=== PATIENT | female | born 1950 | race Caucasian/White ===

== ENCOUNTER → 2016-08-29 | Outpatient (CLI) | payer BC ==
[~2016-08-29] MED LIST: ANASTROZOLE1 MG PO; ATIVAN1 MG PO; CEFUROXIME250 MG PO; COMPAZINE10 MG PO; COZAAR 50 MG TA50 M2 PO; DEXAMETHAS0.5 MG/51 PO; DEXAMETHASONE6 MG PO; HYDROCODONE-CH473 M1 PO; ONDANSETRON HCL8 MG PO; RESTORIL15 MG PO
== END ==
LOC: RAD 11:27
DX: R06.02 Shortness of breath (principal); J90 Pleural effusion, not elsewhere classified; J98.11 Atelectasis; J18.9 Pneumonia, unspecified organism; R91.8 Other nonspecific abnormal finding of lung field

== ENCOUNTER → 2016-12-21 | Outpatient (CLI) | payer BC | LOC: RAD 13:16 | DX: J18.9 Pneumonia, unspecified organism (principal); R06.00 Dyspnea, unspecified ==

== ENCOUNTER → 2017-01-10 | Outpatient (CLI) | payer BC | LOC: CAT 08:49 | DX: C79.81 Secondary malignant neoplasm of breast (principal); G93.0 Cerebral cysts; J90 Pleural effusion, not elsewhere classified ==

== ENCOUNTER 2017-02-28 13:21 | Inpatient (IN) | payer BC ==
[~2017-02-28] VITALS: Ht 157.5 cm; Wt 73.0 kg
--- NOTE | ~2017-02-28 | 2DMMODE ---
[facility] [address] [facility] [place] [employer] [address] 2 D/M-MODE ECHOCARDIOGRAM Name: SHAVONNE SHI Room #: 459-P ADM IN M.R.#: [id number] Admission: 02/28/17 Attend Phys: William Trujillo Discharge: Date of : 54 Date of Service: 03/01/17 1032 Report #: [id number] THIS REPORT FOR: //name// APPROVED REPORT Study performed: 03/01/2017 07:30:44 EXAM: Comprehensive 2D, Doppler, and color-flow Echocardiogram Patient Location: In-Patient Room #: 45 Status: routine Other Information Study Quality: Technically LimitedTechnically Difficult Indications Pleural Effusion 2D Dimensions RVDd: 36.06 mm LVEF(%): 58.79 (>50%) IVSd: 12.12 (7-11mm) LVOT Diam: 18.34 (18-24mm) LVDd: 35.31 mm PWd: 9.45 (7-11mm) Ascending Ao: 34.79 (22-36mm) LVDs: 24.59 (25-40mm) Aortic Root: 28.97 mm IVC: 1.10 mm Badillo's LVEF: 58.79 % Volumes Left Atrial Volume (Systole) Single Plane 4CH: 43.63 mL Aortic Valve AoV Peak Maulik.: 1.61 m/s AO Peak Gr.: 10.34 mmHg LVOT Max P.51 mmHg LVOT Max V: 1.37 m/s ABRAM Vmax: 2.25 cm2 Mitral Valve IVRT: 115.34 ms Pulmonary Valve PV Peak Maulik.: 0.98 m/s PV Peak Gr.: 3.86 mmHg Tricuspid Valve [facility] [address] [place] [address] 2 D/M-MODE ECHOCARDIOGRAM Name: RY SHINDA Room #: 459 ADM IN M.R.#: [id number] Admission: 02/28/17 Attend Phys: William Trujillo Discharge: Date of : 54 Date of Service: 03/01/17 1032 Report #: [id number] RAP Estimate: 10.00 mmHg Left Ventricle The left ventricle is normal size. Regional wall motion is not well visualized but grossly normal. There is normal LV segmental wall motion. There is normal left ventricular wall thickness. Left ventricular systolic function is hyperdynamic. LVEF is 65-70%. This study is not technically sufficient to allow evaluation of the LV diastolic function. Right Ventricle The right ventricle is normal size. The right ventricular systolic function is normal. Atria The left atrium size is normal. The right atrium size is normal. Aortic Valve The aortic valve is grossly normal in structure. No aortic regurgitation. There is no aortic valvular stenosis. Mitral Valve The mitral valve is grossly normal in structure. No mitral regurgitation. No evidence of mitral valve stenosis. Tricuspid Valve The tricuspid valve is normal in structure. There is no tricuspid valve regurgitation noted. Pulmonic Valve The pulmonary valve is normal in structure. There is no pulmonic valvular regurgitation. Great Vessels The aortic root is normal in size. The ascending aorta is normal in size. IVC is normal in size and collapses <50% with inspiration. Pericardium There is no pericardial effusion. <Conclusion> Limited study Left ventricular systolic function is hyperdynamic. LVEF is 65-70%. [facility] [address] [place] [address] 2 D/M-MODE ECHOCARDIOGRAM Name: SHAVONNE SHI Room #: 459-P ADM IN M.R.#: [id number] Admission: 02/28/17 Attend Phys: William Trujillo Discharge: Date of : 54 Date of Service: 03/01/17 1032 Report #: [id number] The aortic valve is grossly normal in structure. No aortic valvular stenosis or insufficiency. The mitral valve is grossly normal in structure. No mitral regurgitation. Pulmonary artery pressure could not be reliably ascertained There is no pericardial effusion. <ELECTRONICALLY SIGNED> By: Joselito Cedillo MD, FACC 03/01/17 1032 31 1032 Joselito Cedillo MD, FACC /INF
[2017-02-28 14:54] VITALS: BP 138/91
[2017-02-28 16:27] LABS: URINE BILIRUBIN NEGATIVE (Negative); URINE BLOOD TRACE (Negative); URINE COLOR YELLOW; URINE GLUCOSE-RANDOM* NEGATIVE (Negative); URINE KETONES NEGATIVE (Negative); URINE LEUKOCYTES-REFLEX NEGATIVE (Negative); URINE PROTEIN (DIPSTICK) NEGATIVE (Negative); URINE SPECIFIC GRAVITY 1.015 (1.003-1.035); URINE UROBILINOGEN 0.2 E.U./dl (0.2-1.0)
[2017-02-28 19:54] LABS: HEMATOCRIT 37.7 % (37.0-47.0); HEMOGLOBIN 12.8 gm/dL (12.0-15.0); MCH 28.2 pg (26.0-34.0); MCV 82.8 fL (80.0-100.0); PLATELET COUNT 388 thou/uL (150-400); RBC 4.55 mil/uL (4.20-5.00); RDW 15.8 % (10.5-14.5); WBC 13.3 thou/uL (4.0-11.0)
[2017-02-28 19:58] LABS: MANUAL DIFF YES
[2017-02-28 20:14] LABS: APTT 29.2 Seconds (24.5-32.8); PROTIME 10.7 Seconds (9.3-11.4)
[2017-02-28 20:15] LABS: ALBUMIN 3.3 g/dL (3.4-5.0); CALCIUM 10.2 mg/dL (8.5-10.1); CREATININE 0.7 mg/dL (0.6-1.0); POTASSIUM 3.8 mmol/L (3.5-5.1); TOTAL BILIRUBIN 0.4 mg/dL (<0.1-1.0); TOTAL PROTEIN 7.2 g/dL (6.4-8.2)
[2017-02-28 20:21] VITALS: BP 142/79
[2017-02-28 20:32] LABS: ABSOLUTE NEUTROPHILS 12.5 thou/uL (1.4-8.2); PLATELET ESTIMATE NORMAL; TOTAL CELL COUNT 100
[2017-03-01 00:31] VITALS: BP 139/83
[2017-03-01 04:00] VITALS: BP 154/94
[2017-03-01 07:18] VITALS: BP 138/78
[2017-03-01 11:31] VITALS: BP 151/91
[2017-03-01 12:39] LABS: BF NUCLEATED CELLS 914; BF RBC 176403
[2017-03-01 12:40] LABS: CLARITY CLOUDY; COLOR RED
[2017-03-01 13:22] LABS: BF MACROPHAGE 3; BF NEUTROPHILS 28; MANUAL DIFF YES; TOTAL VOLUME 4 mL
[2017-03-01 15:44] VITALS: BP 133/82
[2017-03-01 20:19] VITALS: BP 135/71
[2017-03-02 04:20] VITALS: BP 147/87
[2017-03-02 07:29] VITALS: BP 159/97
[2017-03-02 11:54] VITALS: BP 166/101
[2017-03-02] MEDS ORDERED: AUGMENTIN 500-1 EACH PO (14:24)
[2017-03-02] MEDS ORDERED: DEXAMETHASONE 44 M1 PO (14:25)
[2017-03-02 15:00] VITALS: BP 166/101
[2017-03-02 17:14] VITALS: BP 166/101
[2017-03-04 10:09] LABS: BODY FLUID ALBUMIN 2.1 g/dL (()); BODY FLUID AMYLASE 30 U/L (()); BODY FLUID GLUCOSE 154 mg/dL (()); BODY FLUID LDH 387 IU/L (()); BODY FLUID PROTEIN 3.1 g/dL (())
== END 2017-03-02 16:56 | disposition home health service (06) | DRG 597 ==
LOC: 4W 13:21
PROVIDERS: Internal Medicine Pulmonary Disease
PROC: 0W9B30Z Drainage of Left Pleural Cavity with Drainage Device, Percutaneous Approach (ICD-10-PCS; principal; 2017-03-01)
DX: C50.919 Malignant neoplasm of unspecified site of unspecified female breast (principal); J96.21 Acute and chronic respiratory failure with hypoxia; G93.40 Encephalopathy, unspecified; C78.00 Secondary malignant neoplasm of unspecified lung; C78.7 Secondary malignant neoplasm of liver and intrahepatic bile duct; C79.51 Secondary malignant neoplasm of bone; C79.31 Secondary malignant neoplasm of brain; J90 Pleural effusion, not elsewhere classified; I10 Essential (primary) hypertension; J45.909 Unspecified asthma, uncomplicated; F41.9 Anxiety disorder, unspecified; K59.00 Constipation, unspecified; Z90.49 Acquired absence of other specified parts of digestive tract; Z88.8 Allergy status to other drugs, medicaments and biological substances; Z79.899 Other long term (current) drug therapy; Z91.013 Allergy to seafood
CPT/HCPCS: 10047